=== PATIENT | female | born 1995 | race Hispanic/Latino ===

== ENCOUNTER 2022-10-25 22:10 | Observation (INO) | payer MEDICAID, SELFPAY ==
[2022-10-25 22:35] VITALS: BP 110/62; PULSE 93
[2022-10-25 22:46] VITALS: BP 110/66; PULSE 92
[2022-10-25 23:46] VITALS: BMI 30.1
[2022-10-25 23:47] LABS: Appearance Urine Clear (Clear); Bacteria Urine Rare /hpf; Bilirubin Urine Negative (Negative); Blood Urine 2+ (Negative); Color Urine Yellow (Yellow); Glucose Urine UA Negative (Negative); Ketones Urine Negative (Negative); Leukocyte Esterase Ur Trace LEU/UL (Negative); Nitrate Urine Negative (Negative); Non Pathogenic Casts 0-2; Protein Urine Negative (Negative); Specific Grav Ur 1.007 (1.001-1.035); Squamous Epithelial Cell Urine Occasional /hpf (Few); Urobilinogen Urine 0.2 mg/dL (<2.0); WBC Urine 0-5 /hpf; pH Urine 7.5 (5.0-9.0)
--- NOTE | 2022-10-25 23:47 | OBADM ---
This patient, Marleni Barron, admitted to the OB room Labor/Delivery/Recovery 104 for observation. Patient/family oriented to hospital policies and general routines including ID bracelet, bed and alarms, visiting hours, pain management, procedures, bathroom and other care routines, personal items, smoking policy, room service/diet, and visiting hours. Patient/Family are encouraged to report perceived risks to care and to ask questions if they do not understand what they are told or what they should do.
[2022-10-25 23:58] LABS: Add Urine Microscopic? YES
--- NOTE | 2022-10-29 09:41 | PM.OBTRLD ---
OB - Triage/Final Diagnosis Visit Information Date of evaluation: 11/24/22 Reason for evaluation: threatened labor Comments/Additional reasons for admission: I have assessed the risk for this patient, Marleni Carey Anderson, and determined that she would benefit from observation care. Evaluation Laboratory results: Laboratory Tests 10/25/22 23:34 Urine Color Yellow Urine Appearance Clear Urine pH 7.5 Ur Specific [place] 1.007 Urine Protein Negative Urine Glucose (UA) Negative Urine Ketones Negative Ur Blood (Man) 2+ H Urine Nitrate Negative Urine Bilirubin Negative Urine Urobilinogen 0.2 Leukocyte Esterase Rfl Trace H Urine RBC 6-10 H Urine WBC 0-5 Ur Squamous Epith Cells Occasional Urine Bacteria Rare Urine Casts 0-2
== END 2022-10-26 00:45 | disposition home or self-care (01) ==
PROVIDERS: Admitting Provider Obstetrics & Gynecology Gynecology; Visit Provider Advanced Practice Midwife
DX: O47.03 False labor before 37 completed weeks of gestation, third trimester (principal); Z3A.36 36 weeks gestation of pregnancy
CPT/HCPCS: 81001; G0378; G0379

== ENCOUNTER 2022-11-10 11:01 | Observation (INO) | payer MEDICAID, SELFPAY ==
[2022-11-10 12:36] VITALS: BMI 31.4
--- NOTE | 2022-11-10 12:36 | OBADM ---
This patient, Marleni Barron, admitted to the OB room Labor/Delivery/Recovery 105 for observation. Patient/family oriented to hospital policies and general routines including ID bracelet, bed and alarms, visiting hours, pain management, procedures, bathroom and other care routines, personal items, smoking policy, room service/diet, and visiting hours. Patient/Family are encouraged to report perceived risks to care and to ask questions if they do not understand what they are told or what they should do.
--- NOTE | 2022-11-16 07:54 | PM.OBTRLD ---
OB - Triage/Final Diagnosis Visit Information Reason for evaluation: threatened labor Comments/Additional reasons for admission: I have assessed the risk for this patient, Marleni Aurelio Barron, and determined that she would benefit from observation care.
== END 2022-11-10 12:53 | disposition home or self-care (01) ==
PROVIDERS: Admitting Provider Obstetrics & Gynecology Gynecology; Visit Provider Obstetrics & Gynecology Gynecology
DX: O47.1 False labor at or after 37 completed weeks of gestation (principal); Z3A.39 39 weeks gestation of pregnancy
CPT/HCPCS: 84112; G0378; G0379

== ENCOUNTER 2022-11-12 14:56 | Inpatient (IN) | payer MEDICAID, SELFPAY ==
[2022-11-12] VITALS (137 sets, daily range): BP systolic 71–203; BP diastolic 30–171; PULSE 67–219; RESP 16; TEMP 36.3–38.8; O2SAT 81–100; BMI 31.2
[2022-11-12] MEDS: LACTATED RINGERS 1,000 ML 125 ML IV CONT (15:26)
--- NOTE | 2022-11-12 15:33 | PC.NURSE ---
arrives to Ob for onset of contractions beginning at 1400 on 11/12. Reports bright stringy bleeding when wiping with continuous leaking of brown clear fluid since 11/10 at 1200 pm. Reports good movement. Denies any other symptoms.
[2022-11-12 15:52] LABS: Basophils Absolute Auto 0.1 K/mm3 (0.0-0.1); Basophils Percent Auto 0.3 % (0.2-1.2); Eosinophils Absolute Auto 0.1 K/mm3 (0-0.3); Eosinophils Percent Auto 0.8 % (0-4.4); Hematocrit 36.2 % (37.0-47.0); Hemoglobin 12.3 g/dL (12.0-15.0); Immature Granulocyte Absolute 0.06 K/mm3 (0.00-0.031); Immature Granulocyte Percent A 0.4 % (0-0.5); Lymphocytes Absolute Auto 2.25 K/mm3 (0.9-3.2); Lymphocytes Percent Auto 14.6 % (18.3-44.2); Mean Corpuscular Hemoglobin 30.5 pg (26-34); Mean Corpuscular Volume 89.8 fl (80-100); Mean Platelet Volume 10.3 fl (7.4-10.4); Monocytes Absolute Auto 0.6 K/mm3 (0.1-0.6); Monocytes Percent Auto 3.8 % (2.6-8.5); Neutrophils Absolute Auto 12.4 K/mm3 (1.3-6.7); Neutrophils Percent Auto 80.1 % (45.5-73.1); Platelet Count Result 342 k/mm3 (150-375); Red Blood Count 4.03 M/mm3 (4.2-5.4); Red Cell Distribution Width 13.3 % (11.5-14.5); White Blood Count 15.4 K/mm3 (4.5-10.0)
--- NOTE | 2022-11-12 16:32 | WPDANESEPP ---
Anes - Eval Pre Procedure Procedure: Labor Epidural Date/Time: 11/12/22 16:32 Surgeon: Joel Preop Diagnosis: Labor Pain Pre Op Diagnosis: Labor Patient Data Age: 27 Gender: F Height: 1.52 m Weight: 72.575 kg Last Vital Signs Temp 36.5 C 11/12/22 15:45 Pulse 110 H 11/12/22 16:30 BP 104/66 11/12/22 16:30 Pulse Ox 100 11/12/22 16:31 O2 Del Method Room Air 11/11/22 08:00 Allergies Allergy/AdvReac Type Severity Reaction Status Date / Time No Known Allergies Allergy Mild Verified 10/30/22 14:14 Home Medications Medication Instructions Recorded Confirmed Type vits no.126-ferrous fum 1 tablet PO DAILY 11/03/22 11/03/22 History 28 mg iron-folic acid 800 mcg tablet (Classic ) valacyclovir 500 mg tablet 500 mg PO DAILY 11/03/22 11/03/22 History Laboratory Tests 11/12/22 15:15 WBC 15.4 H K/mm3 (4.5-10.0) RBC 4.03 L M/mm3 (4.2-5.4) Hgb 12.3 g/dL (12.0-15.0) Hct 36.2 L % (37.0-47.0) MCV 89.8 fl (80-100) MCH 30.5 pg (26-34) MCHC 34.0 g/dl (32-36) RDW 13.3 % (11.5-14.5) Plt Count 342 k/mm3 (150-375) MPV 10.3 fl (7.4-10.4) Immature Gran % (Auto) 0.4 % (0-0.5) Neut % (Auto) 80.1 H % (45.5-73.1) Lymph % (Auto) 14.6 L % (18.3-44.2) [place] % (Auto) 3.8 % (2.6-8.5) Eos % (Auto) 0.8 % (0-4.4) Baso % (Auto) 0.3 % (0.2-1.2) Lymph # (Auto) 2.25 K/mm3 (0.9-3.2) [place] # (Auto) 0.6 K/mm3 (0.1-0.6) Eos # (Auto) 0.1 K/mm3 (0-0.3) Baso # (Auto) 0.1 K/mm3 (0.0-0.1) Abs Immat Gran (auto) 0.06 H K/mm3 (0.00-0.031) Absolute Neuts (auto) 12.4 H K/mm3 (1.3-6.7) Absolute Nucleated RBC 0.0 K/mm3 (0.0-0.012) Nucleated RBC % 0.0 % (0.0-0.2) RPR Pending HIV 1&2 Ab/P24 Ag 4thGn Pending Blood Type O Positive Antibody Screen Pending : gestational age (, MELO 11/17/22) Patient hx anesthesia problems: none Family hx anesthesia problems: none Results Review: All pre-operative results and documents have been reviewed as part of the pre-operative evaluation. [facility] Family History Family History Other Unknown family medical history Social History Social History Smoking status: Never smoker Substance use: never Lack of Transportation: YES Lack of Food: Never True Current Housing: I Have Housing Concerned About Future Housing: No Difficulty Paying Gas/Electric Bills: No Difficulty Paying for Meds: No Currently Unemployed: YES Education: High School Diploma/GED Difficulty w/ Childcare or Family Care: No Spiritual care concerns: No Exam Day of Procedure 11/12/22 16:32 Patient weight: normal Heart: regular rate and rhythm Lungs: normal air movement Airway: Mallampati scale class II Neurological: alert and oriented
[2022-11-12] MEDS: LACTATED RINGERS 1,000 ML 999 ML IV CONT ×2 (16:51→20:48)
[2022-11-12 16:55] LABS: HIV 1/2 Ab P24 Ag Result Negative (Negative)
[2022-11-12] MEDS: PHENYLEPHRINE 1,000 MCG/10 ML SYRINGE 100 MCG IV PUSH ×3 (16:58→17:29)
[2022-11-12] MEDS: AMPICILLIN 2 GM/NS 100 ML 2 GM/100 ML BAG IVPB (17:24)
[2022-11-12] MEDS: AMPICILLIN 1 GM/NS 50 ML 1 GM/50 ML BAG IVPB (19:45)
[2022-11-12] MEDS: OXYTOCIN 30 UNITS/NS 500 ML 30 UNITS/500 ML BAG 6 UNITS IV CONT (20:04)
[2022-11-12] MEDS: ONDANSETRON INJ 4 MG/2 ML VIAL IV PUSH (20:55)
[2022-11-13] VITALS (43 sets, daily range): BP systolic 102–147; BP diastolic 54–72; PULSE 71–141; RESP 16–18; TEMP 36.6–37.5; O2SAT 95–100
--- NOTE | 2022-11-13 00:08 | WPDHPUPDATE1 ---
History and Physical Update Update Date/Time: 11/13/22 00:08 History and Physical has been reviewed, including an updated exam of the patient. There are NO changes in the patient's condition. Risks, benefits, and alternatives have been discussed and questions answered. Patient agrees to proceed with procedure.
--- NOTE | 2022-11-13 00:08 | WPDOBADMIT ---
Obstetrics - Admit Note Admission Note: record reviewed. No pertinent additions to the history and/or any subsequent changes in the physical findings that are not consistent with the expected course of the were found. Additions to the history and/or subsequent changes in the physical findings follow. None.
--- NOTE | 2022-11-13 00:10 | PM.OBPRVD ---
OB - Delivery Note Procedure Intrapartal Events: Chorioamnionitis Delivery augmentation: Pitocin Delivery monitor: External FHT and Internal Uterine Route of delivery: Episiotomy description: None Laceration Description: None Specimen: Yes Quantitative Blood Loss (ml): 300 Anesthesia type: Epidural Disposition: Floor Complications: none Narrative: Patient prepped and draped in usual manner for this procedure. Maternal expulsive efforts readily delivered vertex, suction nasopharynx, and the rest of baby delivered without difficulty. Cord clamped cut and placenta delivered spontaneously as well. Cervix vagina vulva were noted to not have any lacerations and the uterus was well contracted with no bleeding. Immediate postoperative condition of mother and baby were both excellent. [place] Baby Weeks of gestation at delivery: 39 gender: Female presentation: vertex position: Right Occiput Anterior Placenta delivery description: Spontaneous Cord Vessel Description: 3 Vessels
[2022-11-13] MEDS: OXYTOCIN 30 UNITS/NS 500 ML 30 UNITS/500 ML BAG 125 UNITS IV CONT (00:27)
[2022-11-13] MEDS: GENTAMICIN 60 MG/50 ML NS 60 MG/50 ML BAG 100 MG IVPB ×2 (00:58→09:00)
[2022-11-13] MEDS: WITCH HAZEL 40 PADS 1 PAD TOPICAL (01:59)
[2022-11-13] MEDS: BENZOCAINE 20% AER SPR (*SP) 56 GM CAN 1 SPRAY TOPICAL (02:00)
[2022-11-13] MEDS: IBUPROFEN 600 MG TABLET PO ×3 (02:54→16:22)
[2022-11-13] MEDS: MULTIVIT/MIN/PREN/FOL AC/IRON TABLET 1 TAB PO (09:02)
[2022-11-13 09:44] LABS: Rapid Plasma Reagin Non-Reactive (NonReactive)
--- NOTE | 2022-11-13 09:53 | PM.OBPNVD ---
OB - PN: Subj Subjective Date/time seen: 11/13/22 09:53 Patient comments: no complaints and pain well controlled baby status: doing well OB - PN: Obj Data Labs 11/12/22 15:15 Labs: Laboratory Results - last 24 hr 11/12/22 15:15 WBC 15.4 H RBC 4.03 L Hgb 12.3 Hct 36.2 L MCV 89.8 MCH 30.5 MCHC 34.0 RDW 13.3 Plt Count 342 MPV 10.3 Immature Gran % (Auto) 0.4 Neut % (Auto) 80.1 H Lymph % (Auto) 14.6 L [place] % (Auto) 3.8 Eos % (Auto) 0.8 Baso % (Auto) 0.3 Lymph # (Auto) 2.25 [place] # (Auto) 0.6 Eos # (Auto) 0.1 Baso # (Auto) 0.1 Abs Immat Gran (auto) 0.06 H Absolute Neuts (auto) 12.4 H Absolute Nucleated RBC 0.0 Nucleated RBC % 0.0 RPR Non-reactive HIV 1&2 Ab/P24 Ag 4thGn Negative Blood Type O Positive Antibody Screen Negative OB - PN A/P Assessment and Plan (1) Chorioamnionitis: Code(s): O41.1290 - Chorioamnionitis, unspecified trimester, not applicable or unspecified Status: Acute Assessment and Plan: status post ampicillin and gentamicin afebrile will observe clinically off antibiotics Plan day: 0 Plan: routine care Time Spent With Patient Time: Total time spent is greater than 50% in coordination of care (as documented) at patient's floor/unit and/or counseling patient: Exam Narrative: afebrile since delivery : Bimanual exam- vagina & uterus: other (Uterus firm, nt @U)
--- NOTE | 2022-11-13 09:55 | PM.OBDSVD ---
DS: Admitting Diagnosis Discharge Date 11/15/22 Admitting Diagnosis labor DS: Discharge Diagnosis Discharge Diagnosis (1) Chorioamnionitis: Code(s): O41.1290 - Chorioamnionitis, unspecified trimester, not applicable or unspecified Status: Acute (2) (normal spontaneous vaginal delivery): Code(s): O80 - Encounter for full-term uncomplicated delivery Status: Acute OB - DS: Summary OB Procedures : Ultrasound OB Procedures Intrapartum: Spontaneous Vag Delivery and Other ( antibiotics for chorioamnionitis) OB Procedures: : None Peripartum Data Delivery Method: Natural Vaginal Laceration Description: None complications: none Status at Discharge Functional status at discharge: independent ambulation Overall status at discharge: patient is progressing back to baseline Time Spent with Patient Time attestation: Total time spent providing and/or coordinating discharge services: DS: Data Data Completed and Pending Pending studies at discharge: Pending at discharge 11/13/22 00:04 Surgical [PTH] Routine Labs on day of discharge: Labs from last 24 hours 11/12/22 15:15 WBC 15.4 H RBC 4.03 L Hgb 12.3 Hct 36.2 L MCV 89.8 MCH 30.5 MCHC 34.0 RDW 13.3 Plt Count 342 MPV 10.3 Immature Gran % (Auto) 0.4 Neut % (Auto) 80.1 H Lymph % (Auto) 14.6 L [place] % (Auto) 3.8 Eos % (Auto) 0.8 Baso % (Auto) 0.3 Lymph # (Auto) 2.25 [place] # (Auto) 0.6 Eos # (Auto) 0.1 Baso # (Auto) 0.1 Abs Immat Gran (auto) 0.06 H Absolute Neuts (auto) 12.4 H Absolute Nucleated RBC 0.0 Nucleated RBC % 0.0 RPR Non-reactive HIV 1&2 Ab/P24 Ag 4thGn Negative Blood Type O Positive Antibody Screen Negative Discharge Plan Discharge Attending physician on discharge: Valeri Maldonado Discharging Clinician: Gail Fuller Anticipated Discharge Date/Time: 11/14/22 09:56 Patient Disposition: Home, Self-Care Activity: may shower and pelvic rest Diet: regular Discharge Instructions: Continue taking your vitamin and any other supplements as previously directed (Examples: Iron, Vitamin D). You may take Tylenol 1000mg over the counter every 6 hours as needed for pain. Do not exceed 4000mg of Tylenol daily. You may continue using tucks pads and dermoplast spray if needed for a few more days. Education: Mom and Baby Guide Given to: Mother Follow-Up: Call your delivering provider's office for an appointment to be seen in: 6 Weeks Mom and baby should come to the [facility] for the follow-up appointment. Appointment Date/Time: November 16, 2022 at 9:00 am What to expect at your follow-up visit: Physical Assessment Call [phone] if you are unable to keep your appointment time. BREAST CARE: * Wear a snug supportive bra. * For engorgement discomfort: Breast Feeding: * Apply warm moist washcloths * Express milk as needed to relieve engorgement * Wear loose clothing * For sore nipples: * Identify correct latch-on * Apply warm moist washcloths before and after nursing * Air dry nipples after nursing * May apply Lansinoh cream to nipples EPISIOTOMY/PERINEAL CARE: * Until bleeding stops, use your ascencion bottle after urinating * Change your pad frequently throughout the day * You may take sitz baths several times a day (fill your bathtub with warm water and soak for 20 minutes.) Do NOT bathe in the water * No tub baths until seen by your physician - You may shower ACTIVITY: * Rest as much as possible. * Do not exercise or lift anything heavier than your baby (such as laundry or other children.) * Avoid stairs or driving as much as possible. * Do not put anything into the vagina. No douching, tampons, or sexual activity until seen by physician. NOTIFY PHYSICIAN IF YOU HAVE ANY QUESTIONS OR IF ANY OF THE FOLLOWING SYMPTOMS OCCUR:
--- NOTE | 2022-11-13 12:45 | PC.NURSE ---
1200 Introductions were made, then consulted with patient to assess needs related to . Mother led the conversation with her?plans to feed?her and the?experience so far. Resources provided for inpatient and outpatient services with the feeding sheet, mom/baby guide and name written on the white board. Mother voiced understanding of information and will call with next attempt to feed . Reported to the primary RN.
[2022-11-13] MEDS: ACETAMINOPHEN 325 MG TABLET 650 MG PO (21:02)
[2022-11-14 02:30] LABS: Hematocrit 32.8 % (37.0-47.0); Hemoglobin 10.7 g/dL (12.0-15.0)
--- NOTE | 2022-11-14 07:40 | P.PNOB_ITS ---
OB - PN: Subj Subjective Date/time seen: 11/14/22 07:40 Patient comments: no complaints and pain well controlled baby status: doing well and other (still on antibiotics so has to stay) OB - PN: Obj Data Labs 11/14/22 02:23 Labs: Laboratory Results - last 24 hr 11/12/22 11/14/22 15:15 02:23 Hgb 10.7 L Hct 32.8 L RPR Non-reactive OB - PN A/P Plan day: 1 Plan: routine care Time Spent With Patient Time: Total time spent is greater than 50% in coordination of care (as documented) at patient's floor/unit and/or counseling patient: Exam 2 : Bimanual exam- vagina & uterus: other (Uterus firm, nt @U)
[2022-11-14] MEDS: ACETAMINOPHEN 325 MG TABLET 650 MG PO ×2 (07:50→18:54)
[2022-11-14] MEDS: MULTIVIT/MIN/PREN/FOL AC/IRON TABLET 1 TAB PO (07:51)
[2022-11-14 08:10] VITALS: BP 106/51; PULSE 81; RESP 18; TEMP 36.3; O2SAT 100
--- NOTE | 2022-11-14 12:45 | PC.NURSE ---
0940 Introductions were made, then consulted with patient to assess needs related to . Mother led the conversation with her?plans to feed?her and the?experience so far. Per mother she has not been able to latch baby since yesterday and would like help with trying to latch her today. Encouraged mother to call out for assistance with her next feeding. Mother voiced understanding of information. Reported to the primary RN. 1230 Mother requested to have breast pump to take home through her insurance. Forms were completed and signed. Mother given a copy and a copy with her face sheet was placed in the office. [facility] form also completed, to be faxed tomorrow with the baby's discharge weight.
--- NOTE | 2022-11-14 13:42 | WPDANLDPN2 ---
Anes-Prog Note L&D Date/Time: 11/14/22 13:42 Neuro status: Neuro function grossly intact. Vital Signs: Last Vital Signs Temp 36.3 C L 11/14/22 08:10 Pulse 81 11/14/22 08:10 Resp 18 11/14/22 08:10 BP 106/51 L 11/14/22 08:10 Pulse Ox 100 11/14/22 08:10 O2 Del Method Room Air 11/14/22 07:50 Pain score (VAS): 0 I/O: Intake & Output 11/13/22 11/14/22 11/14/22 23:59 07:59 15:59 Intake Total 240 Balance 240 Patient feedback: Patient satisfied with anesthetic care.
[2022-11-14 18:52] VITALS: BP 100/64; PULSE 93; RESP 20; TEMP 37.2; O2SAT 97
[2022-11-14] MEDS: IBUPROFEN 600 MG TABLET PO (18:54)
[2022-11-15] MEDS: ACETAMINOPHEN 325 MG TABLET 650 MG PO (05:42)
[2022-11-15] MEDS: IBUPROFEN 600 MG TABLET PO (05:43)
--- NOTE | 2022-11-15 08:10 | P.PNOB_ITS ---
OB - PN: Subj Subjective Date/time seen: 11/15/22 0720 Interval history: PPD 2 from . Patient comments: no complaints, pain well controlled and tolerating diet [place] baby status: doing well feeding status: breast and bottle feeding (pumping) OB - PN: Obj Data Labs 11/14/22 02:23 OB - PN A/P Plan day: 2 Plan: discharge home Time Spent With Patient Time: Total time spent is greater than 50% in coordination of care (as documented) at patient's floor/unit and/or counseling patient: Review of Systems Review of Systems: All systems reviewed & are unremarkable except as noted in HPI and below Exam Narrative: Alert and oriented. Mood is pleasant and cooperative. Urinating without difficulty. Denies passing any large clots. Perineum with minimal edema. Fundus firm and below umbilicus. Const: General: cooperative, healthy appearing, no acute distress and alert Orientation/consciousness: patient oriented x3 Limitations: no limitations Resp: Effort & Inspection: normal respiratory effort Auscultation: clear to auscultation bilaterally Cardio: Rate: regular rate GI: Inspection: normal to inspection Neuro: General: patient oriented x3 Extrem: General: normal to inspection Psych: Appearance: grossly normal Mental Status: mental status grossly normal Affect: normal affect Thought process: Normal thought process present
[2022-11-15] MEDS: MEASLES,MUMPS,RUBELLA VACCINE 0.5 ML VIAL SUB-Q (09:07)
[2022-11-15] MEDS: MULTIVIT/MIN/PREN/FOL AC/IRON TABLET 1 TAB PO (09:08)
[2022-11-15 09:15] VITALS: BP 95/67; PULSE 76; RESP 16; TEMP 37.2; O2SAT 100
--- NOTE | 2022-11-15 12:26 | PC.NURSE ---
1012 Reintroductions made. Mother signed WIC form and RN faxed to [facility] office, form placed in mother's chart. Per mother she is still working with baby and latching, encouraged mother to call out with her next feeding for assistance. Per mother she is still pumping after each feeding and getting 2-3 mls each time she pumps and feeding with a syringe. Encouraged mother to put the pumped breast milk in a bottle and give baby the pumped breast milk rather than a syringe, mother is planning on being discharged home today.
[2022-11-16 09:28] VITALS: BP 104/70; PULSE 88; RESP 18; TEMP 36.4; O2SAT 99
== END 2022-11-15 12:00 | disposition home or self-care (01) | DRG 560 ==
LOC: ANHLDR 16:28 → ANHOB2 11-13 02:37
PROVIDERS: Admitting Provider Obstetrics & Gynecology; Visit Provider Obstetrics & Gynecology Gynecology
DX: O41.1230 Chorioamnionitis, third trimester, not applicable or unspecified (principal); Z37.0 Single live birth; Z3A.39 39 weeks gestation of pregnancy
CPT/HCPCS: 36415; 85014; 85018; 85025; 86592; 86703; 86850; 86900; 86901; 88307; 90710; A9270; G0432; J0290; J1580; J2371; J2405; J2590; J2795; J7120